=== PATIENT | male | born 1945 | race Caucasian/White ===

== ENCOUNTER 2017-03-12 16:23 | Inpatient (IN) | payer MEDICARE, BC ==
--- NOTE | 2017-03-12 19:04 | EDM.PDOC ---
{null, <[place] - Last Filed: 03/12/17 19:13> ED HPI RENAL/ - General Chief Complaint: Fever Stated Complaint: DIZZY/HIGH BP Time Seen by Provider: 03/12/17 18:50 Source of Information: Reports: Patient History Limitations: Reports: No limitations - History of Present Illness INITIAL COMMENTS - FREE TEXT/NARRATIVE: This 71 yo male patient reports to the ED with a fever and blood in his urine. The patient reports he had a prostate biopsy yesterday at [address] Ortega in [place]. Dr. Ortega called and advised that the patient should be admitted to our hospital due to infection. Dr. Nixon advised to avoid cipro, but encouraged us to have IV Rocephin waiting for culture results. 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: Reports: Acetaminophen (at 1500) - Related Data Allergies/ADRs: Allergies Allergy/AdvReac Type Severity Reaction Status Date / Time No Known Allergies Allergy Verified 03/12/17 17:28 Home Meds: Home Meds Calcium Carbonate/Vitamin D3 [Calcium 600 + Vit D 400] 1 cap PO DAILY 05/10/14 [ History] Cholecalciferol (Vitamin D3) [Vitamin D] 1,000 unit PO DAILY 05/10/14 [History] Omeprazole [Omeprazole] 20 mg PO DAILY 05/10/14 [History] Potassium 1 - 2 tab PO DAILY PRN 05/10/14 [History] Metoprolol Tartrate [Metoprolol Tartrate] 12.5 mg PO BID 09/17/16 [History] Brimonidine Tartrate [Brimonidine Tartrate 0.2% Ophth Soln] 1 drop EYEBOTH BID 03/12/17 [History] Tamsulosin [Flomax] 0.4 mg PO DAILY 03/12/17 [History] Past Medical History HEENT History: Reports: Cataract, Impaired vision, Other (see below) Other HEENT History: WEARS CORRECTIVE LENS Cardiovascular History: Reports: Arrhythmia, High cholesterol Respiratory History: Reports: None Gastrointestinal History: Reports: GERD, Other (see below) Other Gastrointestinal History: LIZARRAGA ESOPHAGUS Genitourinary History: Reports: BPH, Other (see below) Other Genitourinary History: ELEVATED PSA; NEPHROLITHIASIS; ATYPICAL SMALL ACINAR PROLIFERATION OF PROSTRATE; INCOMPLETE EMPTYING BLADDER Musculoskeletal History: Reports: Fracture, Other (see below) Other Musculoskeletal History: BUNION; HX OF FRACTURE OF LEFT FEMUR Neurological History: Reports: Concussion, Migraines, Other (see below) Other Neuro History: RESTLESS LEG SYNDROME & CRAMPING Psychiatric History: Reports: None Endocrine/Metabolic History: Reports: Osteopenia Hematologic History: Reports: Anemia, Other (see below) Other Hematologic History: NO ANEMIA AN ADULT, WAS DX AND RESOLVED A CHILD Immunologic History: Reports: None Oncologic (Cancer) History: Reports: Other (see below) Other Oncologic History: BASAL CELL CARCINOMA (NECK) Dermatologic History: Reports: Other (see below) Other Dermatologic History: ACTINIC KERATOSIS - Infectious Disease History Infectious Disease History: Reports: Chicken pox, Mumps - Past Surgical History Head Surgeries/Procedures: Reports: None HEENT Surgical History: Reports: Adenoidectomy, Tonsillectomy Cardiovascular Surgical History: Reports: None Respiratory Surgical History: Reports: None GI Surgical History: Reports: Colonoscopy, EGD, Hernia, inguinal Male Surgical History: Reports: Prostate Biopsy Endocrine Surgical History: Reports: None Neurological Surgical History: Reports: None Musculoskeletal Surgical History: Reports: ORIF, Other (see below) Other Musculoskeletal Surgeries/Procedures:: LEFT FEMUR SKYE PLACED Oncologic Surgical History: Reports: None Dermatological Surgical History: Reports: None Social & Family History - Family History HEENT: Reports: Cataract, Impaired vision Cardiac: Reports: Arrhythmia, Hypertension Respiratory: Reports: None GI: Reports: Other (see below) Other GI Family History: STOMACH CA : Reports: None OBGYN: Reports: Other (see below) Other OBGYN Family History: INFERTILITY Musculoskeletal: Reports: None Neurological: Reports: None Psychiatric: Reports: None Endocrine/Metabolic: Reports: None Hematologic: Reports: None Immunologic: Reports: None Dermatologic: Reports: None Oncologic: Reports: Other (see below) Other Oncologic Family History: STOMACH-FATHER - Tobacco Use Smoking Status *Q: Never Smoker Used Tobacco, but Quit: No Second Hand Smoke Exposure: No - Caffeine Use Caffeine Use: Reports: Coffee Other Caffeine Use: AVERAGES 2-3 CUPS DAILY - Alcohol Use Days Per Week of Alcohol Use: 0 - Recreational Drug Use Recreational Drug Use: No Drug Use in Last 12 Months: No ED ROS GENERAL - Review of Systems Review Of Systems: ROS reveals no pertinent complaints other than HPI. ED EXAM, RENAL/ - Physical Exam Exam: See Below Exam Limited By: No limitations General Appearance: alert, WD/WN, moderate distress, thin Eye Exam: bilateral eye: EOMI, normal inspection, PERRL Ears: normal external exam, normal canal, hearing grossly normal, normal TMs Nose: normal inspection, normal mucosa, no blood Throat/Mouth: Normal inspection, Normal lips, Normal teeth, Normal gums, Normal oropharynx, Normal voice, No airway compromise Head: atraumatic, normocephalic Neck: normal inspection, supple, non-tender, full range of motion Respiratory/Chest: no respiratory distress, lungs clear, normal breath sounds, no accessory muscle use, chest non-tender Cardiovascular: normal peripheral pulses, regular rate, rhythm, no edema, no gallop, no JVD, no murmur, no rub GI/Abdominal: normal bowel sounds, soft, non tender, no organomegaly, no distention, no abnormal bruit, no mass (Male) Exam: Deferred Rectal (Males) Exam: Deferred Back Exam: normal inspection, full range of motion, NT Extremities: normal inspection, normal range of motion, non-tender, normal capillary refill, no pedal edema Neurological: alert, oriented, CN II-XII intact, normal cognition, normal gait, normal reflexes, no motor/sensory deficits Psychiatric: normal affect, normal mood Skin Exam: Warm, Dry, Intact, Normal color, No rash Lymphatic: no adenopathy Course - Vital Signs Last Recorded V/S: Last Vital Signs Temp 100.3 F 03/12/17 21:12 Pulse 100 03/12/17 21:12 Resp 18 03/12/17 21:12 BP 118/57 L 03/12/17 21:12 Pulse Ox 95 03/12/17 21:12 - Orders/Labs/Meds Orders: Active Orders 24 hr Category Date Time Status CULTURE BLOOD [BC] Stat Lab 03/12/17 18:38 Received CULTURE BLOOD [BC] Stat Lab 03/12/17 18:45 Received CULTURE URINE [RM] Stat Lab 03/12/17 18:35 Received Blood Culture x2 Reflex Set [OM.PC] Stat Oth 03/12/17 18:21 Ordered Medication Orders Hydrocodone Bitart/Acetaminophen (Wisdom 325-10 Mg) 1 tab PO Q4H PRN PRN Reason: Pain (moderate 4-6) Calcium Carbonate (Calcium Carbonate/Vitamin D 1250 Mg-200 Unit) 1 tab PO DAILY [facility] Cholecalciferol (Vitamin D3) 1,000 units PO DAILY [facility] Ceftriaxone Sodium 1 gm/ (Sodium Chloride) 50 mls @ 100 mls/hr IV Q24H [facility] Sodium Chloride (Normal Saline) 1,000 mls @ 100 mls/hr IV ASDIRECTED [facility] Last Admin: 03/12/17 21:35 Dose: 100 mls/hr Metoprolol Tartrate (Lopressor) 12.5 mg PO BID [facility] Morphine Sulfate (Morphine) 2 mg IVPUSH Q2H PRN PRN Reason: Pain (severe 7-10) Brimonidine Tartrate 0.2% Ophth Jennifer Pt Own 1 drop EYEBOTH BID [facility] Omeprazole (Omeprazole) 20 mg PO ACBREAKFAST [facility] Ondansetron HCl (Zofran Odt) 4 mg PO Q4H PRN PRN Reason: nausea, able to take PO Sodium Chloride (Saline Flush) 10 ml FLUSH ASDIRECTED PRN PRN Reason: Keep Vein Open Tamsulosin HCl (Flomax) 0.4 mg PO DAILY [facility] Zolpidem Tartrate (Ambien) 5 mg PO BEDTIME PRN PRN Reason: Sleep Labs: Laboratory Tests 03/12/17 03/12/17 03/12/17 Range/Units 18:35 18:38 18:38 WBC 19.1 H (5.0-10.0) 10^3/uL RBC 4.72 (4.6-6.2) 10^6/uL Hgb 14.6 (14.0-18.0) g/dL Hct 43.5 (40.0-54.0) % MCV 92.2 (80-100) fL MCH 30.9 (27.0-34.0) pg MCHC 33.6 (33.0-35.0) g/dL Plt Count 200 (150-450) 10^3/uL Neut % (Auto) 89.0 H (42.2-75.2) % Lymph % (Auto) 4.1 L (20.5-50.1) % [place] % (Auto) 6.7 (2-8) % Eos % (Auto) 0.1 L (1.0-3.0) % Baso % (Auto) 0.1 (0.0-1.0) % Sodium 130 L (135-145) mmol/L Potassium 3.9 (3.6-5.0) mmol/L Chloride 97 L (101-111) mmol/L Carbon Dioxide 23.0 (21.0-31.0) mmol/L Anion Gap 13.9 BUN 20 H (7-18) mg/dL Creatinine 1.2 (0.6-1.3) mg/dL Est Cr Clr Drug Dosing 56.28 mL/min Estimated GFR (MDRD) 59 BUN/Creatinine Ratio 16.66 Glucose 103 (74-105) mg/dL Lactic Acid (0.5-2.2) mmol/L Calcium 9.4 (8.4-10.2) mg/dl Total Bilirubin 0.9 (0.2-1.0) mg/dL AST 30 (10-42) IU/L ALT 22 (10-60) IU/L Alkaline Phosphatase 56 (42-121) IU/L Total Protein 7.0 (6.7-8.2) g/dl Albumin 4.2 (3.2-5.5) g/dl Globulin 2.8 Albumin/Globulin Ratio 1.50 Urine Color Red (YELLOW) Urine Appearance Cloudy (CLEAR) Urine pH 6.5 (5.0-9.0) Ur Specific [place] 1.010 (1.005-1.030) Urine Protein >=300 H (NEGATIVE) Urine Glucose (UA) Negative (NEGATIVE) Urine Ketones Trace H (NEGATIVE) Urine Occult Blood Large H (NEGATIVE) Urine Nitrite Negative (NEGATIVE) Urine Bilirubin Small H (NEGATIVE) Urine Urobilinogen 0.2 (0.2-1.0) mg/dL Ur Leukocyte Esterase Negative (NEGATIVE) Urine RBC Packed H /HPF Urine WBC 5-10 H (0-5/HPF) /HPF Ur Epithelial Cells Not seen /HPF Urine Bacteria Occasional (0-FEW/HPF) /HPF 03/12/17 Range/Units 18:38 WBC (5.0-10.0) 10^3/uL RBC (4.6-6.2) 10^6/uL Hgb (14.0-18.0) g/dL Hct (40.0-54.0) % MCV (80-100) fL MCH (27.0-34.0) pg MCHC (33.0-35.0) g/dL Plt Count (150-450) 10^3/uL Neut % (Auto) (42.2-75.2) % Lymph % (Auto) (20.5-50.1) % [place] % (Auto) (2-8) % Eos % (Auto) (1.0-3.0) % Baso % (Auto) (0.0-1.0) % Sodium (135-145) mmol/L Potassium (3.6-5.0) mmol/L Chloride (101-111) mmol/L Carbon Dioxide (21.0-31.0) mmol/L Anion Gap BUN (7-18) mg/dL Creatinine (0.6-1.3) mg/dL Est Cr Clr Drug Dosing mL/min Estimated GFR (MDRD) BUN/Creatinine Ratio Glucose (74-105) mg/dL Lactic Acid 1.2 (0.5-2.2) mmol/L Calcium (8.4-10.2) mg/dl Total Bilirubin (0.2-1.0) mg/dL AST (10-42) IU/L ALT (10-60) IU/L Alkaline Phosphatase (42-121) IU/L Total Protein (6.7-8.2) g/dl Albumin (3.2-5.5) g/dl Globulin Albumin/Globulin Ratio Urine Color (YELLOW) Urine Appearance (CLEAR) Urine pH (5.0-9.0) Ur Specific [place] (1.005-1.030) Urine Protein (NEGATIVE) Urine Glucose (UA) (NEGATIVE) Urine Ketones (NEGATIVE) Urine Occult Blood (NEGATIVE) Urine Nitrite (NEGATIVE) Urine Bilirubin (NEGATIVE) Urine Urobilinogen (0.2-1.0) mg/dL Ur Leukocyte Esterase (NEGATIVE) Urine RBC /HPF Urine WBC (0-5/HPF) /HPF Ur Epithelial Cells /HPF Urine Bacteria (0-FEW/HPF) /HPF Meds: Medications Generic Name Dose Route Start Last Admin Trade Name Freq PRN Reason Stop Dose Admin Hydrocodone Bitart/Acetaminophen 1 tab 03/12/17 21:08 Wisdom 325-10 Mg PO Q4H PRN Pain (moderate 4-6) Calcium Carbonate 1 tab 03/13/17 09:00 Calcium Carbonate/Vitamin D 1250 Mg-200 Unit PO DAILY [facility] Cholecalciferol 1,000 units 03/13/17 09:00 Vitamin D3 PO DAILY [facility] Ceftriaxone Sodium 1 gm/ 50 mls @ 100 mls/hr 03/13/17 20:00 Sodium Chloride IV Q24H MADDIE Sodium Chloride 1,000 mls @ 100 mls/hr 03/12/17 21:15 03/12/17 21:35 Normal Saline IV 100 mls/hr ASDIRECTED MADDIE Administration Metoprolol Tartrate 12.5 mg 03/13/17 09:00 Lopressor PO BID [facility] Morphine Sulfate 2 mg 03/12/17 21:08 Morphine IVPUSH Q2H PRN Pain (severe 7-10) Brimonidine Tartrate 1 drop 03/13/17 09:00 0.2% Ophth Jennifer Pt EYEBOTH Own BID [facility] Omeprazole 20 mg 03/13/17 06:00 Omeprazole PO ACBREAKFAST [facility] Ondansetron HCl 4 mg 03/12/17 21:08 Zofran Odt PO Q4H PRN nausea, able to take PO Sodium Chloride 10 ml 03/12/17 21:46 Saline Flush FLUSH ASDIRECTED PRN Keep Vein Open Tamsulosin HCl 0.4 mg 03/13/17 09:00 Flomax PO DAILY [facility] Zolpidem Tartrate 5 mg 03/12/17 21:08 Ambien PO BEDTIME PRN Sleep Discontinued Medications Generic Name Dose Route Start Last Admin Trade Name Freq PRN Reason Stop Dose Admin Acetaminophen 650 mg 03/12/17 19:53 03/12/17 20:15 Tylenol PO 03/12/17 19:54 650 mg NOW ONE Administration Ceftriaxone Sodium 1 gm/ 50 mls @ 100 mls/hr 03/12/17 19:07 03/12/17 19:42 Sodium Chloride IV 03/12/17 19:36 100 mls/hr ONETIME ONE Administration Departure - Departure Disposition: Admitted As Inpatient 64 Clinical Impression: History of prostate biopsy, Hematuria Leukocytosis Qualifiers: Leukocytosis type: bandemia Qualified Code(s): D72.825 - Bandemia Fever Qualifiers: Fever type: post-procedural Qualified Code(s): R50.82 - Postprocedural fever <Ashlee Ackerman - Last Filed: 03/13/17 02:17> Course - Re-Assessments/Exams Free Text/Narrative Re-Assessment/Exam: TC consult Dr. Cohen regarding patient status. Reviewed prior shift TC consult with patient's urologist recommendation for IV rocephin. Patient admitted observation. Departure - Departure Time of Disposition: 20:10 Condition: undetermined }
[2017-03-12] MEDS ORDERED: cefTRIAXone 1 GM in Sodium Chloride 0.9% 50 ML IV ONE (19:07)
[2017-03-12] MEDS ORDERED: Acetaminophen 325 MG Tab PO ONE (19:53)
[2017-03-12] MEDS ORDERED: Morphine 2 MG/ML Syringe IVPUSH PRN (21:08)
[2017-03-12] MEDS ORDERED: Zolpidem 5 MG Tab PO PRN (21:08)
[2017-03-12] MEDS ORDERED: Acetaminophen/HYDROcodone 325-10 MG Tab PO PRN (21:08)
[2017-03-12] MEDS ORDERED: Ondansetron 4 MG Tab.DIS PO PRN (21:08)
[2017-03-12] MEDS: Sodium Chloride 0.9% 1,000 ML IV SCH (21:35)
[2017-03-12] MEDS ORDERED: Sodium Chloride 0.9% 10 ML Syringe FLUSH PRN (21:46)
--- NOTE | 2017-03-13 01:30 | HP ---
{null, CHIEF COMPLAINT: Blood in the urine with fevers. HISTORY OF PRESENTING ILLNESS: Mr. Nicholas Wilson is a 71-year-old male with medical history significant for hypertension; hyperlipidemia; atrial fibrillation, not on any active anticoagulation at this time; gastroesophageal reflux disease; basal cell carcinoma in the past; Perry's esophagus, recently underwent prostate biopsy that was yesterday at [facility] in [place]. He had transrectal ultrasound of the prostate and prostate biopsy using the ultrasound guidance for needle placement under local anesthesia. Postprocedure, the patient was hemodynamically stable, but later this afternoon, the patient started having fevers. He had a temperature of 103 at home, took some Tylenol, but did not help. He continued to have fevers and chills, so came to the emergency room. While in the emergency room, the patient was noted to have fever again and Urology was consulted, who has advised the patient to be admitted to the hospital for IV antibiotic therapy. At this time, the patient denies any complaints of abdominal pain. He complains of some burning pain when he urinates. He is seeing some blood in the urine, but no clots in the urine. He denies any lower abdominal pain. He denies any chest pains. No shortness of breath. No nausea. No vomiting. No diarrhea. No cough with phlegm for the last few days. The patient denied any history of chest pains on exertion. No history of dyspnea on exertion. No history of orthopnea or paroxysmal nocturnal dyspnea. The patient denied any history of hematemesis, hematochezia, or melanotic stools. Normal bowel and bladder habits, otherwise. REVIEW OF SYSTEMS: A complete review of system including cardiovascular system, respiratory system, gastrointestinal system, genitourinary system, hematology/oncology, neurology, allergy, immunology, endocrinology, constitutional were all evaluated and were negative except for the above-said notes. PAST MEDICAL HISTORY: Significant for hypertension, hyperlipidemia, paroxysmal atrial fibrillation, gastroesophageal reflux disease, restless legs syndrome, urolithiasis, history of basal cell carcinoma, Perry's esophagus, actinic keratosis. PAST SURGICAL HISTORY: Significant for biopsy of the prostate back in June of 2015, and also yesterday inguinal hernia repair. FAMILY HISTORY: Significant for breast cancer in his mother and thyroid disease, history of stomach cancer in his father, and prostate cancer in 1 of his cousins. ALLERGIES: No known drug allergies. SOCIAL HISTORY: The patient denied any history of smoking tobacco. No history of alcohol intake. HOME MEDICATIONS: Include: 1. Flomax 0.4 mg daily. 2. Potassium 1 to 2 tablet daily as needed. 3. Omeprazole 20 mg daily. 4. Metoprolol 12.5 mg twice a day. 5. Vitamin D3, 1000 units daily. 6. Calcium carbonate with vitamin D 1 caplet daily. 7. Brimonidine eye drop twice a day. PHYSICAL EXAMINATION: Vital Signs: Temperature of 100.6, pulse of 97, blood pressure of 153/53, respiratory rate of 20, saturating at 94% on room air. General Appearance: The patient is well oriented to time, place, and person. Follows commands spontaneously. Cardiovascular System: S1, S2 heard with normal intensity. No gallops. Respiratory System: Clear to auscultation bilaterally. No wheeze. No crepitations. Abdomen: Soft. Bowel sounds positive. Nontender. No rigidity. Extremities: Mild edema noted in bilateral lower extremities. Neurology: No gross focal neurological deficits. Skin: No acute rash noted. LABORATORY DATA: WBC 19.1, hemoglobin 14.6, hematocrit 43.5, platelet count 200. Sodium 130, potassium 3.9, chloride 97, bicarb 23, BUN 20, creatinine 1.2, glucose 103, lactic acid 1.2, calcium 9.4, total bilirubin 0.9. AST 30, ALT 22, alkaline phosphatase 56. Urinalysis; large for occult blood, negative for nitrites, negative for leukocytes, rbc packed, 5 to 10 wbc's. ASSESSMENT: 1. Post-prostate biopsy complication with hematuria. 2. Fever. 3. Systemic inflammatory response syndrome with possible sepsis with temperature of 100.6 and leukocytosis. 4. Paroxysmal atrial fibrillation. 5. Hypertension. 6. Hyponatremia. PLAN: 1. Fever. The patient is complaining of having fevers up to 103. He is noted to have leukocytosis. He is noted to have tachypnea with respiratory rate of 20, suggestive of possible sepsis, possible systemic inflammatory response syndrome. We will start him on IV antibiotic with ceftriaxone. Obtain blood cultures and urine cultures. His initial lactic acid is within normal limits. We will recheck the lactic acid in the next 6 to 8 hours and we will closely follow the patient, titrate the antibiotics once we have the culture reports available. 2. Gross hematuria. This is as a complication of the prostate biopsy. There is no outlet obstruction at this time. We will closely monitor, keep him hydrated with IV fluids, avoid any heparin products or any aspirin or any nonsteroid or anti-inflammatory agents secondary to the bleed, closely follow. 3. Paroxysmal atrial fibrillation. The patient gives history of paroxysmal AFib, but review of the chart did not show any evidence of AFib in the past. In any case, we will closely follow the patient. His heart rate seems to be well controlled. Continue with metoprolol 12.5 mg twice a day. We will hold the aspirin for now secondary to the acute bleed. The patient not on active anticoagulation, never took any Coumadin in the past. 4. Hypertension. The patient's blood pressure seems to be in acceptable range, slightly elevated at this time, could be resulting from stress. Continue with metoprolol. Avoid any hypotensive episodes. 5. Hyponatremia. This could be resulting from pain. We will have him on IV normal saline. Recheck a basic metabolic panel in the a.m. 6. DVT prophylaxis. Avoid any heparin secondary to the acute bleed. Discussed with Dr. Rosado, ER physician, regarding the plan of care. Discussed with family members at bedside. Reviewed the labs and medications. Reviewed the old charts. [facility] /[id number] }
[2017-03-13] MEDS: Acetaminophen 325 MG Tab PO PRN ×3 (04:17→15:56)
[2017-03-13] MEDS: Omeprazole 20 MG Cap.CR PO SCH (06:29)
[2017-03-13] MEDS: Sodium Chloride 0.9% 1,000 ML IV SCH ×2 (08:04→18:41)
[2017-03-13] MEDS ORDERED: BRIMONIDINE TARTRATE 0.15% EYEBOTH SCH (09:00)
[2017-03-13] MEDS: Tamsulosin 0.4 MG Cap.ER PO SCH (09:48)
[2017-03-13] MEDS: Cholecalciferol (Vitamin D3) 400 Unit Tab PO SCH (09:48)
[2017-03-13] MEDS: Calcium Carbonate/Vitamin D3 1250 MG-200 Unit Tab PO SCH (09:48)
[2017-03-13] MEDS: Metoprolol Tartrate 25 MG Tab PO SCH ×2 (09:49→20:41)
--- NOTE | 2017-03-13 11:48 | PN ---
{null, DATE: 03/13/2017 HISTORY OF PRESENT ILLNESS: Mr. Nicholas Wilson is a 71-year-old male with a medical history significant for hypertension, hyperlipidemia, atrial fibrillation, not on any active anticoagulation at this time, gastroesophageal reflux disease, recently underwent a prostate biopsy for possible prostate cancer, this was complicated with hematuria and admitted to the hospital with sepsis. For the past 24 hours, the patient was continued on IV antibiotics and IV fluids. His blood culture is positive for Gram-negative iron, 2/2 blood cultures, consistent with sepsis. The patient denies any chest pain. No shortness of breath. No abdominal pain. No nausea. No vomiting. No diarrhea. Complains of mild weakness. REVIEW OF SYSTEMS: Cardiovascular, respiratory, gastrointestinal, neurology, constitutional were all evaluated. PHYSICAL EXAMINATION: Vital Signs: Temperature of 102.1, blood pressure 124/55, respiratory rate of 20, saturating at 95% on room air. Pulse of 88. General appearance: The patient is well oriented to time, place, and person. Follows commands spontaneously. Cardiovascular system: S1, S2 heard with normal intensity. No gallops. Respiratory system: Clear to auscultation bilaterally. No wheeze. No crepitations. Abdomen: Soft. Bowel sounds positive. Nontender. No rigidity. No guarding. No rebound tenderness. Extremities: No edema in bilateral lower extremities. Neurology: No gross focal neurological deficits. Psychiatric: Normal mood. Skin: No acute lesions. MEDICATIONS: Reviewed. 1. Tylenol 650 every 4 hours as needed for fever and pain. 2. Percocet 5/325 mg every 4 hours as needed for pain. 3. Vitamin D3 at 1000 mg daily. 4. Metoprolol 12.5 mg twice a day. 5. Morphine 2 mg IV every 2 hours as needed for pain. 6. Omeprazole 20 mg daily. 7. Zofran 4 mg every 4 hours as needed for nausea and vomiting. 8. Ambien 5 mg at bedtime. LABORATORY DATA: WBC 16.7, improved from 19.1; hemoglobin 13.1, hematocrit 39.1, platelet count 195. Sodium 135, potassium 4, chloride 105, bicarb 23, BUN 19, creatinine 1.2. Glucose 122. Urinalysis negative for leukocytes, negative for nitrates, 5-10 wbc's, occasional bacteria. MICROBIOLOGY: Blood cultures positive for Gram-negative rods, 2/2 blood cultures. ASSESSMENT: 1. Sepsis with positive blood cultures. 2. Prostatitis, is a complication of prostate biopsy. 3. Hematuria, is a complication of prostate biopsy. 4. Paroxysmal atrial fibrillation. 5. Hypertension. 6. Hyperlipidemia. 7. Acute hyponatremia. PLAN: 1. Sepsis. The patient was admitted with fevers and chills and was noted to be in sepsis. The patient was started on IV antibiotics, ceftriaxone. His blood cultures are positive for Gram-negative iron, await for identification and susceptibility on the cultures, and titrate the antibiotics if needed. We will closely follow. The patient continues to have fevers while in the hospital. 2. Hematuria. The patient continues to have hematuria, but no clots noted. This is a complication of prostate biopsy. We will closely follow the patient. He is noted to have prostatitis. 3. Paroxysmal atrial fibrillation. Heart rate seems to be well controlled. He is on low-dose metoprolol, continue the same. Not on any active anticoagulation. Avoid any aspirin products secondary to the active bleed. 4. Gastroesophageal reflux disease. The patient is currently on omeprazole, continue the same. 5. Hyponatremia, resolved. The patient was noted to have low sodium at the time of admission. This is resolved at this time with normal saline. We will continue the IV fluids for better urinary output. 6. DVT prophylaxis. Avoid any heparin products secondary to the ongoing hematuria, gross. 7. The patient will need long-term antibiotics given his sepsis. We will closely follow the patient. The patient might need PICC line placement. We will repeat a blood culture in a.m. to see if his sepsis is getting cleared. [facility] /[id number] }
[2017-03-13] MEDS ORDERED: Ibuprofen 400 MG Tab PO ONE (17:34)
[2017-03-13] MEDS ORDERED: Piperacillin/Tazobactam 3.375 GM in Sodium Chloride 0.9% 100 ML IV SCH (17:45)
[2017-03-13] MEDS: cefTRIAXone 1 GM in Sodium Chloride 0.9% 50 ML IV SCH (20:11)
[2017-03-13] MEDS: BRIMONIDINE TARTRATE 0.15% EYEBOTH SCH (20:43)
[2017-03-13] MEDS: Piperacillin/Tazobactam 4.5 GM in Sodium Chloride 0.9% 50 ML IV SCH (23:43)
[2017-03-14] MEDS: Piperacillin/Tazobactam 4.5 GM in Sodium Chloride 0.9% 50 ML IV SCH ×2 (05:35→13:55)
[2017-03-14] MEDS: Omeprazole 20 MG Cap.CR PO SCH (05:36)
[2017-03-14] MEDS: Sodium Chloride 0.9% 1,000 ML IV SCH ×2 (06:49→17:03)
[2017-03-14] MEDS: Cholecalciferol (Vitamin D3) 400 Unit Tab PO SCH (09:12)
[2017-03-14] MEDS: Metoprolol Tartrate 25 MG Tab PO SCH ×2 (09:12→21:14)
[2017-03-14] MEDS: Calcium Carbonate/Vitamin D3 1250 MG-200 Unit Tab PO SCH (09:12)
[2017-03-14] MEDS: Tamsulosin 0.4 MG Cap.ER PO SCH (09:12)
[2017-03-14] MEDS: BRIMONIDINE TARTRATE 0.15% EYEBOTH SCH ×2 (09:14→20:42)
[2017-03-14] MEDS: Piperacillin/Tazobactam 4.5 GM in Sodium Chloride 0.9% 100 ML IV SCH ×2 (13:52→18:27)
[2017-03-14] MEDS: Acetaminophen 325 MG Tab PO PRN (18:29)
[2017-03-14] MEDS ORDERED: Barium Sulfate w/v 1.3% Oral Susp 450 ML Bottle PO ONE (20:17)
[2017-03-14] MEDS: cefTRIAXone 1 GM in Sodium Chloride 0.9% 50 ML IV SCH (20:22)
[2017-03-15] MEDS: Piperacillin/Tazobactam 4.5 GM in Sodium Chloride 0.9% 100 ML IV SCH ×2 (00:08→06:14)
[2017-03-15] MEDS: Sodium Chloride 0.9% 1,000 ML IV SCH (06:11)
[2017-03-15] MEDS: Omeprazole 20 MG Cap.CR PO SCH (06:17)
[2017-03-15] MEDS: Meropenem 1 GM in Sodium Chloride 0.9% 100 ML IV SCH ×2 (08:17→16:03)
--- NOTE | 2017-03-15 08:43 | PN ---
{null, DATE: 03/14/2017 HISTORY OF PRESENT ILLNESS: Mr. Peterson is a 71-year-old gentleman who underwent multiple transrectal prostate biopsies several days ago. Within several hours following the procedure, he developed rigors, chills, and 103 degree temperature. He took Tylenol which did not help; the fever and chills continued. He came to emergency room and was admitted. The admitting physician did contact Urology to review the findings. On admission to the emergency department, he had a temperature of 100.6 degrees , blood pressure was 153/53, pulse 97, respiratory rate 20, oxygen saturation 94% on room air. Lab work showed a white count of 19,000 with a left shift. Sodium was 130, remainder of the electrolytes were unremarkable. BUN and creatinine were 20 and 1.2 with a GFR of 59. LFTs were unremarkable. Urine showed a cloudy red urine with a specific gravity of 1.010 and had a large amount of occult blood, and negative leukocyte esterase. Microscopic exam showed packed rbc's and 5 to 10 wbc's per high-power field with occasional bacteria. Blood cultures drawn on the day of admission have all (4/4 bottles) become positive for the presence of gram-negative rods. Two sets of followup blood cultures were drawn today and results are pending. Repeat lab work this morning shows that the white count has come down to 6.7. Hemoglobin and hematocrit are stable at 13 and 39. Electrolytes are normal. BUN and creatinine are stable at 15 and 1.3 with a GFR of 54. Blood sugars are controlled. Lactic acid since admission has remained normal as well. Review of his clinical data shows that he is taking adequate fluids. He is voiding and does seem to be somewhat ahead on his fluids. His appetite has been poor but is improving. His medications are reviewed. He currently is on IV ceftriaxone. Zosyn was later added to broaden the coverage, as he continued to be febrile and had positive blood cultures. On exam today, his is present in his room. He is lying in bed. His dinner tray is there, but he has not touched it. He is laying bundled under multiple blankets and has a cold cloth on his head. He has continued to spike fevers. His T-max in the last 24 hours was 101.7 last evening. This afternoon he did spike again to 100.7. He denies any pain, but does say that he continues to feel unwell with shaking last night; he experienced rigors at the time of the temperature spike. No blood cultures were drawn at that time. He denies any back or flank pain. He still continues to have some dysuria with voiding. He does continue to have some post-procedure hematuria. PHYSICAL EXAMINATION: General: On exam, he is lying in bed. He appears unwell. He is bundled under blankets, but he was alert, oriented, and did participate in the visit. Vital Signs: Blood pressure 98/46, later in the day this improved to 117/50, pulse 62 and regular, respiratory rate 20, oxygen saturation 94% on room air. Temperature 98.6, later in the day this went again to 100.7. HEENT: Unremarkable. Neck was supple. Mouth showed moist mucous membranes. Sclerae were nonicteric. There was no adenopathy. Chest: Showed clear but diminished bilateral breath sounds. Heart: Showed regular rate and rhythm. Abdomen: Soft, benign, nontender, no guarding, no rebound. No masses were palpated. Extremities: Legs showed the calves to be soft and nontender. There are palpable peripheral pulses. Skin: Warm and dry without any rashes. ASSESSMENT AND PLAN: Mrs. Peterson was also present for the visit and we discussed his progress since admission and the significance of his findings. Of concern is the fact that he continues to spike temperatures while on the 2 antibiotics. We are going to order a CT scan of the abdomen and pelvis tomorrow with IV and oral contrast to eliminate possibility of any collection or abscess formation. We will contact Urology if there are any findings of concern. Mr. Peterson also has a iron in one of his femurs and Mrs. Peterson spoke with their orthopedist. The orthopedist stated that because this was not a joint replacement, he was not concerned about the bacteremia with the presence of the iron. Mr. Peterson recently had some type of stents placed in his eyes at the time of cataract removal and we will get in touch with Dr. Landers and discuss this with him. No changes were made in his medications today. He continues on the two IV antibiotics. A second set of blood cultures has been drawn and results are pending. White count is now down to normal, but he continues to spike intermittent fevers. Overall, he remains hemodynamically stable. [facility] /[id number] NORAHD }
[2017-03-15] MEDS ORDERED: Iopamidol 612 MG/ML 75 ML Bottle IVPUSH ONE (09:00)
[2017-03-15] MEDS ORDERED: Barium Sulfate w/v 1.3% Oral Susp 450 ML Bottle PO ONE (09:00)
--- NOTE | 2017-03-15 09:59 | CT ---
{null, CLINICAL HISTORY: 71-year-old 160 pound hypertensive male with fever and septicemia (Escherichia col i) post prostate biopsy (15 core samples revealed "cancer") 11 March 2017. Abscess? SCAN TECHNIQUE: Volume acquisition of data from the abdomen and pelvis obtained after oral ingestion 2 bottles Redicat barium and during/after the intravenous infusion 75 cc nonionic Isovue contrast ( 2.5 cc/sec via injector) while the patient was lying supine on the Siemens multislice CT scanner [place], [place]. All data archived in the PACS system for storage, refo rmatting and study. INTERPRETATION: 1. Orthopedic "nail" left hip. 2. Chronic disc disease and hypertrophic arthritic changes dorsal lumbar spine. 3. Inhomogeneously dense midline prostate gland with irregular margins and central calcifications bu t no abnormal fluid collections or abscess appreciated. (Symmetric normal seminal vesicles) 4. Diverticula scattered sigmoid colon without associated signs of inflammation. 5. No pelvic, mesenteric or retroperitoneal lymphadenopathy. Calcifications ectatic aorta. 6. Normal reniform size, axis and configuration. No sign of renal cortical mass lesion (solitary 2.5 mm diameter calyceal calcification midpole right kidney) or obstructive uropathy. Median lobe prost ate mass base of the urinary bladder. 7. No abdominal mass lesion, inflammatory "dirty" peritoneal fat, signs of mechanical bowel obstruct ion, ascites or free intraperitoneal air. 8. Gallbladder, liver, stomach, spleen, pancreas and adrenal glands anatomically correct. 9. Cardiomegaly. No sign of pericardial effusion. NOTE: Dependent bibasilar pleural effusions and underlying posterior segment left lower lobe atelect asis or infiltrate. CONCLUSION: Abnormal prostate gland. Sigmoid diverticulosis. Cardiomegaly with pleural effusions and....left lower lobe atelectasis or infiltrate. }
--- NOTE | 2017-03-15 11:49 | CR ---
{null, Clinical history: 71-year-old male septicemia after recent prostate biopsy. Interpretation: Abnormal. Normal cardiac silhouette without cephalization of vascular flow or signs of alveolar edema but...sm all bibasilar dependent subpulmonic pleural effusions (left greater than right) and.... underlying r etrocardiac left lower lobe atelectasis or infiltrate. (Pulmonary emphysema or infarct? Serum D dimer?) No lung mass, hilar lymphadenopathy or other focal lobar consolidation. }
[2017-03-15] MEDS: Metoprolol Tartrate 25 MG Tab PO SCH (12:09)
[2017-03-15] MEDS: Tamsulosin 0.4 MG Cap.ER PO SCH (12:09)
[2017-03-15] MEDS: Calcium Carbonate/Vitamin D3 1250 MG-200 Unit Tab PO SCH (12:09)
[2017-03-15] MEDS: Cholecalciferol (Vitamin D3) 400 Unit Tab PO SCH (12:11)
[2017-03-15] MEDS: BRIMONIDINE TARTRATE 0.15% EYEBOTH SCH (12:14)
[2017-03-15 14:35] VITALS: BP 111/56
[2017-03-15] MEDS ORDERED: Furosemide 20 MG/2 ML VIAL IVPUSH ONE (16:02)
--- NOTE | 2017-04-10 04:21 | DISCH ---
{null, DISCHARGE SUMMARY ACUTE CARE DISCHARGE DIAGNOSES: 1. Gram-negative sepsis with positive blood cultures for Escherichia coli. 2. Status post transrectal prostate biopsy on 03/11/2017, with Gram-negative sepsis as complication. 3. Biopsy-proven prostate cancer, 03/11/2017, stable. 4. Remainder of past medical history as documented in the admission history and physical of 03/13/2017. BRIEF HISTORY OF PRESENT ILLNESS: Mr. Peterson is a 71-year-old gentleman, who underwent multiple transrectal prostate biopsies on 03/11/2017. Within several hours following the procedure, he had developed rigors, chills, and temperature to 103 degrees. He took Tylenol at home, which did not help. The fevers and chills continued. He came to the emergency room for evaluation and was admitted for further management. The admitting physician did speak to Mr. Peterson's urologist, Dr. Dylan Ortega, informing him of the findings and the admission. PERTINENT LABORATORY DATA AND X-RAYS: CBC on day of admission showed a white count of 19,000, with a left shift. White count gradually improved and was 6.7 at the time of discharge from acute to swing bed. Hemoglobin and hematocrit at discharge were 12.9 and 39.4. Platelets at the time of admission were normal at 200,000, and slightly reduced at 132,000, at time of discharge. Electrolytes were unremarkable. BUN and creatinine on admission were 20 and 1.2, with a GFR of 59, this diminished slightly to GFR of 54 at time of discharge. Lactic acid was normal at 1.2. LFTs were unremarkable. A urinalysis on day of admission showed a cloudy, red-colored urine with a specific gravity of 1.010. Negative for leukocyte esterase and nitrites. Microscopic exam showed packed rbc's with 5 to 10 wbc's, with only occasional bacteria. Urine culture showed no growth after 2 days. Two sets of blood cultures were drawn at the time of admission, and 4/4 bottles were positive for E. coli. Two subsequent sets of blood cultures were drawn 48 hours after initiating IV antibiotic therapy and showed no growth after [address] scan of the abdomen and pelvis was obtained during the admission to evaluate for the possibility of an abscess or collection. There was no evidence for any abdominal mass lesion, "dirty" peritoneal fat, or other intra-abdominal pathology. Prostate was noted to be abnormal, but we do know that the prostate biopsies were positive for prostate cancer. He had diverticulosis, but no evidence for diverticulitis. A 2-view chest x-ray performed at time of admission showed a normal cardiac silhouette with no acute infiltrates and no pulmonary venous congestion, no adenopathy. There were small bibasilar pleural effusions, left greater than right. A transthoracic echocardiogram was obtained because of the bacteremia. Results showed no evidence of a mass or vegetation. A transthoracic echo does not completely eliminate the possibility of endocarditis. Ejection fraction was estimated 55% to 60%. The right ventricle was moderately dilated, the right ventricular systolic function is borderline reduced. There is [id number] tricuspid and mitral valve regurgitation, no vegetation was seen on the valve. There was no pericardial effusion. HOSPITAL COURSE: Mr. Peterson had originally been started on IV Zosyn and ceftriaxone was also added. Results of the blood culture showed E. coli in 4/4 bottles. The organism was resistant to ampicillin and fluoroquinolones. Despite being on the two IV antibiotics, he continued to spike temperatures as high as 101.7, with chills and rigors. The Zosyn was discontinued and meropenem was added to the ceftriaxone. Once the VITOR of the cultures was available, the ceftriaxone was discontinued and he continued on meropenem 1 g IV every 8 hours. At that point, he clinically improved and he defervesced with maximum temperature of a 100 degrees throughout the day. He clinically looked and felt much better. He will be admitted to swing bed to continue IV antibiotic therapy. Once he was feeling better, he was up and ambulatory and did not require the services of Physical and Occupational Therapy. No heparin or enoxaparin was used for VTE prophylaxis because of the recent prostate biopsy and the mild hematuria, but as mentioned, he was up and ambulatory, was wearing SURINDER hose. Mr. Peterson does have a iron in one of his femurs, and Mr. Peterson spoke with his orthopedist. The orthopedist was not concerned about the bacteremia as this was not part of a joint replacement and it was less risk to the iron. Two sets of follow-up blood cultures remained without any growth. Mr. Peterson will be discharged today to swing bed to continue IV antibiotics. Today, on day of discharge, he is looking and feeling much better. He is up and ambulatory. Review of his clinical data shows that he is taking in adequate fluids. He is voiding and moving his bowels. There has been no gross hematuria. He is tolerating his diet and appetite is improving. Vital signs have been stable, and his T-max in the last 24 hours has been 99.6 degrees. Chest x-ray taken on day of discharge showed small bibasilar pleural effusions, and he was given a one dose of Lasix 20 mg IV. PHYSICAL EXAMINATION: General: He is looking much better. He is feeling better. He voices no new concerns or complaints. There has been no chest pain, no shortness of breath, no abdominal pain. No calf or leg pain. No further rigors or chills. Vital Signs: Blood pressure 114/58, pulse 59, respiratory rate 20, oxygen saturation 98% on room air, temperature 98.4. Weight 160 pounds 11.2 ounces. HEENT: Unremarkable. ENT was clear. Sclerae were nonicteric. Mouth showed moist mucous membranes. Chest: Showed clear bilateral breath sounds. Heart: Showed regular rate and rhythm. Abdomen: Soft, benign, nontender. No flank pain. No guarding or rebound. No suprapubic tenderness. Extremities: Showed no edema. There were palpable peripheral pulses and the calves were soft and nontender. Neurologic: He is intact. DISCHARGE MEDICATIONS: He will continue on his usual medications. 1. Tylenol 650 mg every 4 hours p.r.n. pain or fever. 2. Brimonidine 0.2% ophthalmic solution 1 drop both eyes b.i.d. 3. Calcium with vitamin D 1 tablet daily. 4. Vitamin D3, 1000 units daily. 5. Metoprolol tartrate 12.5 mg twice a day. 6. Omeprazole 20 mg daily. 7. Flomax 0.4 mg daily. 8. He will continue on meropenem 1 g IV every 8 hours. IMPRESSION: A 71-year-old gentleman, status post transrectal prostate biopsies on 03/11/2017. He subsequently developed Gram-negative bacteremia, with 4/4 blood cultures positive for Escherichia coli. He will now be discharged from acute care and [facility] to continue a 14-day course of IV antibiotics. PLAN: 1. Continue IV meropenem 1 g IV every 8 hours. Plann for a 14-day course. 2. Continue usual medications as above. 3. Follow up blood cultures have remained negative. Urine culture is also negative. 4. He is up and ambulatory and will not need referral to Physical and Occupational Therapy. 5. We will continue to hold heparin for VTE prophylaxis because of the recent prostate biopsy and hematuria. He is up, ambulatory, moving, and wearing SURINDER hose. 6. We have informed his urologist, Dr. Dylan Ortega of the admission and findings. Mr. Peterson will see Dr. Ortega by Telemedicine next week. At that time, the results of his biopsy and a recent MRI will be discussed with him and his . 7. Code status during this admission: Full code. DISCHARGE CONDITION: Condition at the time of discharge from acute care and admission to swing bed: Much improved and stable. [facility] /[id number] MTDD }
== END 2017-03-15 17:36 | disposition swing bed (61) | DRG 872 ==
LOC: DL.ED 16:23 → DL.MS 20:30 → UNDOADMOB 20:30 → DL.MS 21:08 → UNDOADMOB 21:08 → DL.MS 21:11 → OBSVTOIN 03-13 10:19 → INTOOBSV 03-13 10:19 → UNDODISIN 03-15 17:36
PROVIDERS: ADMIT Internal Medicine; ATTEND Internal Medicine
DX: A41.9 Sepsis, unspecified organism (principal); D72.825 Bandemia; E87.1 Hypo-osmolality and hyponatremia; E78.00 Pure hypercholesterolemia, unspecified; B96.20 Unspecified Escherichia coli [E. coli] as the cause of diseases classified elsewhere; N40.0 Benign prostatic hyperplasia without lower urinary tract symptoms; N41.9 Inflammatory disease of prostate, unspecified; M85.80 Other specified disorders of bone density and structure, unspecified site; R31.9 Hematuria, unspecified; Z98.890 Other specified postprocedural states; I10 Essential (primary) hypertension; E78.5 Hyperlipidemia, unspecified; I48.0 Paroxysmal atrial fibrillation; K21.9 Gastro-esophageal reflux disease without esophagitis; G25.81 Restless legs syndrome; Z79.899 Other long term (current) drug therapy; C61 Malignant neoplasm of prostate
CPT/HCPCS: 36415; 71020; 74177; 80048; 80053; 81001; 83605; 85025; 85027; 87040; 87077; 87086; 87186; 93306; 96361; 96365; 99284; A9270-GY; G0378; J0696; J1940; J2185; J2543; J7030; J7050; Q9967

== ENCOUNTER 2017-03-15 21:17 | Inpatient (IN) | payer MEDICARE, BC ==
[2017-03-15] MEDS ORDERED: Ondansetron 4 MG Tab.DIS PO PRN (21:21)
[2017-03-15] MEDS ORDERED: Zolpidem 5 MG Tab PO PRN (21:21)
[2017-03-15] MEDS ORDERED: Patient's Own Medication 1 Each EYEBOTH SCH (21:30)
[2017-03-15] MEDS ORDERED: Acetaminophen 325 MG Tab PO PRN (21:36)
[2017-03-15] MEDS: Metoprolol Tartrate 25 MG Tab PO SCH (22:21)
[2017-03-15] MEDS: Patient's Own Medication 1 Each EYEBOTH SCH (22:23)
[2017-03-15] MEDS: Sodium Chloride 0.9% 10 ML Syringe FLUSH PRN ×2 (22:25→23:28)
[2017-03-15] MEDS: Meropenem 1 GM in Sodium Chloride 0.9% 100 ML IV SCH (22:25)
[2017-03-16] MEDS: Sodium Chloride 0.9% 10 ML Syringe FLUSH PRN ×4 (05:31→23:40)
[2017-03-16] MEDS: Meropenem 1 GM in Sodium Chloride 0.9% 100 ML IV SCH ×3 (05:32→22:34)
[2017-03-16] MEDS: Omeprazole 20 MG Cap.CR PO SCH (05:36)
[2017-03-16] MEDS: Tamsulosin 0.4 MG Cap.ER PO SCH (09:32)
[2017-03-16] MEDS: Calcium Carbonate/Vitamin D3 1250 MG-200 Unit Tab PO SCH (09:33)
[2017-03-16] MEDS: Cholecalciferol (Vitamin D3) 400 Unit Tab PO SCH (09:33)
[2017-03-16] MEDS: Patient's Own Medication 1 Each EYEBOTH SCH ×2 (09:36→22:15)
[2017-03-16] MEDS: Metoprolol Tartrate 25 MG Tab PO SCH ×2 (09:37→22:14)
[2017-03-17] MEDS: Omeprazole 20 MG Cap.CR PO SCH (05:32)
[2017-03-17] MEDS: Meropenem 1 GM in Sodium Chloride 0.9% 100 ML IV SCH ×3 (05:33→21:57)
[2017-03-17] MEDS: Sodium Chloride 0.9% 10 ML Syringe FLUSH PRN ×4 (05:33→21:57)
[2017-03-17] MEDS: Cholecalciferol (Vitamin D3) 400 Unit Tab PO SCH (09:48)
[2017-03-17] MEDS: Tamsulosin 0.4 MG Cap.ER PO SCH (09:48)
[2017-03-17] MEDS: Calcium Carbonate/Vitamin D3 1250 MG-200 Unit Tab PO SCH (09:48)
[2017-03-17] MEDS: Metoprolol Tartrate 25 MG Tab PO SCH ×2 (09:49→22:05)
[2017-03-17] MEDS: Patient's Own Medication 1 Each EYEBOTH SCH ×2 (09:51→22:07)
[2017-03-18] MEDS: Sodium Chloride 0.9% 10 ML Syringe FLUSH PRN ×3 (05:29→13:38)
[2017-03-18] MEDS: Meropenem 1 GM in Sodium Chloride 0.9% 100 ML IV SCH ×3 (05:30→22:01)
[2017-03-18] MEDS: Omeprazole 20 MG Cap.CR PO SCH (05:30)
--- NOTE | 2017-03-18 08:14 | HP ---
REASON FOR ADMISSION TO SWING BED: A 71-year-old man with gram negative sepsis will be admitted to swing [facility] to continue and complete a 2-week course of IV antibiotics. HISTORY OF PRESENT ILLNESS: Mr. Peterson is a 71-year-old gentleman who underwent multiple transrectal prostate biopsies on March 11, 2017. Within several hours following the procedure, he developed rigors, chills and a 103 degree temperature. He took Tylenol, which did not help. Fevers and chills continued, and he came to the emergency room, was evaluated and then admitted. The admitting hospitalist did contact the urologist, Dr. Dylan Ortega, and informed him of the findings and the admission. LABORATORY STUDIES: Lab work at the time of admission showed white count of 19,000 with a left shift. BUN and creatinine were 20 and 1.2 with a GFR of 49. Urine showed a cloudy red urine with a specific gravity of 1.010. Microscopic exam showed packed red cells and 5-10 WBCs per high-power field with only an occasional bacteria. Two sets of blood cultures were drawn on the day of admission, and are 4/4 bottles are positive for the presence of gram-negative rods, which have now been identified as E. coli. The organism was resistant to ampicillin and fluoroquinolones. He had initially been started on IV ceftriaxone as well as IV Zosyn. Despite being on 2 antibiotics, he continued to spike temperatures to as high as 101.7 and the Zosyn was discontinued and meropenem was added to the ceftriaxone. Once the VITOR was available, the ceftriaxone was discontinued, and he will continue on meropenem 1 g IV every 8 hours. Clinically, he is finally much improved and T-max in the 24 hours prior to discharge to swing bed was 100.0 degrees throughout the day and today have remained no higher than 99.6. Clinically, he looks and feels much better. He will now be admitted to swing bed to continue the IV antibiotic therapy. It should also be noted that the biopsies taken on March 11 were positive for adenocarcinoma of the prostate. PAST MEDICAL HISTORY: Dyslipidemia, GERD, Perry's esophagus, elevated PSA, which has now been confirmed to be prostate cancer by multiple biopsy samples restless legs syndrome, basal cell carcinoma, actinic keratoses, hypertension, and paroxysmal atrial fibrillation. PAST SURGICAL HISTORY: Esophageal biopsy with diagnosis of Perry's esophagus in June 2015. March 11, 2017, transrectal biopsies of the prostate. SOCIAL HISTORY: He is . He has never smoked cigarettes. He only drinks occasional social alcohol. IMMUNIZATIONS: High-dose flu vaccine August 29, 2016. Pneumovax (PPV-23) November 21, 2012. Pneumococcal vaccine (PCV 13) August 29, 2016. Zoster November 14, 2012. CURRENT MEDICATIONS: Are reviewed. His usual medications will be continued. He will continue on meropenem 1 g IV every 8 hours for the next 14 days. ALLERGIES: No known allergies. REVIEW OF SYSTEMS: During his acute stay, he gradually improved. His appetite improved. He is tolerating his diet. He is voiding and moving his bowels. He is taking in adequate fluids and his IV fluids will be discontinued. He is now afebrile. Vital signs are stable. Blood pressure is in the normal range. Oxygen saturations were in the mid to high 90% on room air. He denies any sore throat. No vision or hearing changes. No swallowing difficulties. No chest pain or shortness of breath. No abdominal pain. No flank pain. No dysuria or gross hematuria. No calf or leg pain. He was not started on heparin for VTE prophylaxis because of the recent prostate biopsy. However, he is up and ambulatory and is wearing SURINDER hose. No recent falls or injuries. No rashes, no cough. PHYSICAL EXAMINATION: General: He is a pleasant gentleman. He is accompanied by his . He is much improved since admission. Today, he is sitting up in bed. Vital Signs: Blood pressure was 118/61, pulse 60 and regular, respiratory rate 20 and unlabored, oxygen saturation 98% on room air, temperature 99, weight 160 pounds 11 ounces, height 6 feet. HEENT: Unremarkable. ENT is clear. No adenopathy, no JVDs, or bruits. Chest: Clear bilateral breath sounds with improved bilateral air movement. Heart: Regular rate and rhythm. Abdomen: Soft, benign, and nontender. There was no flank pain. No guarding, no rebound. Extremities: No edema. Calves were soft and nontender. There were palpable peripheral pulses. Neurological: He is intact. Skin: Clear with no rashes. IMPRESSION: A 71-year-old gentleman who underwent recent multiple transrectal prostate biopsies, which confirmed diagnosis of prostate cancer. Following the procedure, he developed fever and chills and was found to have gram-negative bacteremia. Blood cultures have shown the presence of E. coli in 4/4 bottles. A followup set of blood cultures have remained negative. Urine culture is also negative. He will be admitted to swing bed to continue and complete a 14-day course of IV meropenem. PLAN: 1. Continue current medications. 2. We will continue IV meropenem for the gram-negative bacteremia. Plan is to complete a 14-day course. 3. He is up and ambulatory independently. We will not need to refer him to physical and occupational Therapy. 4. We are not using heparin for VTE prophylaxis because of the recent prostate biopsy. Mr. Peterson is also up and ambulatory, moving, and is wearing SURINDER hose. 5. We have informed his urologist, Dr. Dylan Ortega, of the admission and findings. Mr. Peterson is due to follow up this week by telemedicine here in [place] with Dr. Ortega to receive the reports of the biopsy and recent MRI. 6. Code status: Full code. CONDITION AT THE TIME OF DISCHARGE FROM ACUTE CARE AND ADMISSION TO SWING BED: Much improved and stable. [facility] /[id number] HALIMA
[2017-03-18] MEDS: Metoprolol Tartrate 25 MG Tab PO SCH ×2 (10:03→21:57)
[2017-03-18] MEDS: Calcium Carbonate/Vitamin D3 1250 MG-200 Unit Tab PO SCH (10:05)
[2017-03-18] MEDS: Patient's Own Medication 1 Each EYEBOTH SCH ×2 (10:05→22:01)
[2017-03-18] MEDS: Tamsulosin 0.4 MG Cap.ER PO SCH (10:09)
[2017-03-18] MEDS: Cholecalciferol (Vitamin D3) 400 Unit Tab PO SCH (10:10)
[2017-03-19] MEDS: Omeprazole 20 MG Cap.CR PO SCH (06:34)
[2017-03-19] MEDS: Meropenem 1 GM in Sodium Chloride 0.9% 100 ML IV SCH ×3 (06:34→21:31)
[2017-03-19] MEDS: Cholecalciferol (Vitamin D3) 400 Unit Tab PO SCH (08:35)
[2017-03-19] MEDS: Tamsulosin 0.4 MG Cap.ER PO SCH (08:35)
[2017-03-19] MEDS: Calcium Carbonate/Vitamin D3 1250 MG-200 Unit Tab PO SCH (08:35)
[2017-03-19] MEDS: Metoprolol Tartrate 25 MG Tab PO SCH ×2 (08:36→21:19)
[2017-03-19] MEDS: Patient's Own Medication 1 Each EYEBOTH SCH ×2 (08:37→21:17)
[2017-03-19] MEDS: Sodium Chloride 0.9% 10 ML Syringe FLUSH PRN ×4 (14:22→22:34)
[2017-03-20] MEDS: Sodium Chloride 0.9% 10 ML Syringe FLUSH PRN ×3 (05:08→22:02)
[2017-03-20] MEDS: Meropenem 1 GM in Sodium Chloride 0.9% 100 ML IV SCH ×3 (05:10→22:00)
[2017-03-20] MEDS: Omeprazole 20 MG Cap.CR PO SCH (05:13)
[2017-03-20] MEDS: Tamsulosin 0.4 MG Cap.ER PO SCH (08:19)
[2017-03-20] MEDS: Calcium Carbonate/Vitamin D3 1250 MG-200 Unit Tab PO SCH (08:19)
[2017-03-20] MEDS: Cholecalciferol (Vitamin D3) 400 Unit Tab PO SCH (08:19)
[2017-03-20] MEDS: Metoprolol Tartrate 25 MG Tab PO SCH ×3 (08:21→22:01)
[2017-03-20] MEDS: Patient's Own Medication 1 Each EYEBOTH SCH ×2 (08:31→22:10)
[2017-03-20 22:12] VITALS: BP 98/51
--- NOTE | 2017-04-10 04:18 | DISCH ---
FINAL DIAGNOSES: 1. Gram-negative bacteremia. 2. Prostate cancer, status post biopsy. BRIEF HISTORY AND PHYSICAL EXAMINATION: The patient is a 71-year-old man being admitted under swing bed to complete 2-week course of IV antibiotics. He was noted to have E. coli bacteremia. He recently underwent prostate biopsy for an elevated PSA and subsequently developed rigors and chills with a temperature of 103. The patient was noted to have elevated WBC count. Blood culture showed positive for gram-negative and identified as E coli, and the patient was advised to continue IV antibiotics, hence was admitted under swing bed. PAST MEDICAL HISTORY: Dyslipidemia, GERD, Perry's esophagus, elevated PSA, basal cell carcinoma, hypertension, and paroxysmal atrial fibrillation. DOCUMENTED PHYSICAL EXAMINATION: Vital Signs: On admission to swing bed documented physical examination showed a blood pressure of 118/61, respirations of 20 breaths per minute, heart rate of 60 beats per minute, temperature of 99, and oxygen saturation 98% on room air. The rest of the examination were noted to be unremarkable. LABORATORY DATA: No workup done under swing bed. HOSPITAL COURSE: The patient was admitted under swing bed. IV meropenem was continued. There have been no significant issues when he was under swing bed. He has been independently ambulatory, has no therapy needed. He has not been on heparin because of the recent biopsy. Vital signs on discharge; blood pressure 98/51, heart rate of 65 beats per minute, respirations 20 breaths per minute, oxygen saturation 97% on room air, and temperature 37.0. DISCHARGE INSTRUCTIONS: The patient is to follow up with his primary care provider within 1 week, take care of the IV site, continue with IV antibiotics outpatient, to come back to the emergency room if with emergent health concerns. [facility] /[id number] HALIMA
== END 2017-03-20 22:55 | disposition home or self-care (01) | DRG 872 ==
LOC: UNDOADMIN 21:17 → DL.MS 21:17
PROVIDERS: ADMIT Internal Medicine; ATTEND Internal Medicine
DX: A41.51 Sepsis due to Escherichia coli [E. coli] (principal); K21.9 Gastro-esophageal reflux disease without esophagitis; I10 Essential (primary) hypertension; C61 Malignant neoplasm of prostate; K22.70 Barrett's esophagus without dysplasia; Z85.828 Personal history of other malignant neoplasm of skin; Z86.79 Personal history of other diseases of the circulatory system; Z79.2 Long term (current) use of antibiotics
CPT/HCPCS: A9270-GY; J2185; J7050

== ENCOUNTER 2021-02-22 05:52 | Day surgery (SDC) | payer MEDICARE, BC ==
[2021-02-22] MEDS ORDERED: fentaNYL 100 MCG/2 ML SDV IV ONE ×3 (05:53→07:06)
[2021-02-22] MEDS ORDERED: Midazolam 1 MG/ML 2 ML SDV IV ONE ×7 (05:53→07:15)
[2021-02-22] MEDS ORDERED: Sodium Chloride 0.9% 10 ML Syringe FLUSH PRN (06:00)
[2021-02-22] MEDS ORDERED: fentaNYL 100 MCG/2 ML SDV ONE (06:19)
[2021-02-22] MEDS ORDERED: Midazolam 1 MG/ML 2 ML SDV ONE (06:19)
[2021-02-22] MEDS ORDERED: Dextrose 5%-0.45% NaCl 1,000 ML IV SCH (07:15)
[2021-02-22 10:30] VITALS: BP 106/59; PULSE 54
--- NOTE | 2021-02-22 16:04 | OR ---
DATE: 02/22/2021 PROCEDURE: Total colonoscopy. INSTRUMENT USED: [id number]-H190DL Olympus video colonoscope. PREMEDICATIONS: Fentanyl 100 mcg intravenous, Versed 4 mg intravenous. Nasal O2 cannula. The procedure was done under pulse oximetry, BP recording, and cardiac rn. INDICATION: The patient with rectal bleeding. Colonoscopy examination is done for detection of any polypoid lesions and removal, endoscopic hemostasis therapy if needed. DESCRIPTION OF PROCEDURE: Initial rectal exam was unremarkable. Rigid anoscopy showed small internal hemorrhoids with minimal bleeding around the area. The colonoscope was passed with ease. Numerous scattered diverticula were noted in the distal left colon along with deformity. The scope was passed with ease up to the ileocecal area. Photographs were taken of the normal-appearing cecum identified by landmarks of appendiceal orifice and double-bulged ileocecal folds. No bleeding was noted from any of the visualized areas at the commencement of the examination. The bowel preparation was found to be adequate. Cordell scale 2 in all regions, total score 6. No stricture, no vascular ectasia. No large isolated ulcerations seen. No evidence of diffuse inflammatory bowel disease in the form of friability, contact bleeding, or ulcerations. No polyp or tumor mass identified. Probing the proximal sides of folds and flexures using adequate distention and clearing up the stool material, withdrawal of the scope was made, cecum to rectum time over 6 minutes. No bleeding was noted from any of the visualized areas at the completion of examination. IMPRESSION: 1. Internal hemorrhoids. 2. Diverticulosis. The patient tolerated the procedure well. [facility] /[id number]
== END 2021-02-22 09:29 | disposition home or self-care (01) ==
LOC: DL.ENDO 05:52
PROVIDERS: ATTEND Internal Medicine Gastroenterology
DX: K57.31 Diverticulosis of large intestine without perforation or abscess with bleeding (principal); K64.8 Other hemorrhoids; K21.9 Gastro-esophageal reflux disease without esophagitis; E78.5 Hyperlipidemia, unspecified; C61 Malignant neoplasm of prostate; N20.1 Calculus of ureter
CPT/HCPCS: 45378; J2250; J3010; J7042

== ENCOUNTER 2023-02-08 11:24 | Observation (INO) | payer MEDICARE, BC ==
[2023-02-08 12:22] LABS: ANION GAP 12.3 mEq/L (7-13); CHLORIDE,CL 100 mmol/L (98-107); SODIUM,NA 135 mmol/L (136-145)
[2023-02-08] MEDS ORDERED: GI Cocktail Oral Solution 30 ML PO ONE (12:24)
[2023-02-08] MEDS ORDERED: Ondansetron 4 MG/2 ML SDV IVPUSH ONE (12:24)
[2023-02-08 12:28] LABS: ESTIMATED GFR 70 mL/min (>=60)
[2023-02-08] MEDS ORDERED: Sodium Chloride 0.9% 1,000 ML IV SCH (12:30)
[2023-02-08] MEDS ORDERED: Iopamidol 612 MG/ML 100 ML Bottle IVPUSH ONE (12:35)
[2023-02-08] MEDS ORDERED: Ciprofloxacin in D5W 400 MG in Premix Bag 1 BAG IV ONE ×2 (13:38)
[2023-02-08] MEDS ORDERED: Albuterol/Ipratropium 3.0-0.5 MG/3 ML Neb Soln NEB PRN (15:09)
[2023-02-08] MEDS ORDERED: Acetaminophen 325 MG Tab PO PRN (15:09)
[2023-02-08] MEDS ORDERED: Ondansetron 4 MG/2 ML SDV IVPUSH PRN (15:09)
[2023-02-08] MEDS ORDERED: Magnesium Sulfate/Water 2 GM in Premix Bag 1 BAG IV ONE (15:17)
[2023-02-08] MEDS ORDERED: Acetaminophen 500 MG Tab PO PRN (16:11)
[2023-02-08] MEDS: Acetaminophen/HYDROcodone 325-5 MG Tab PO PRN ×2 (16:31→20:34)
[2023-02-08] MEDS ORDERED: diphenhydrAMINE 25 MG Tab PO PRN (16:44)
[2023-02-08] MEDS: Dextrose 5%-0.9% NaCl 1,000 ML IV SCH (18:51)
[2023-02-08] MEDS: Famotidine 20 MG Tab PO SCH (20:34)
[2023-02-08] MEDS ORDERED: Metoprolol Tartrate 25 MG Tab PO SCH (21:00)
[2023-02-08] MEDS: METOPROLOL TARTRATE 25 MG PO SCH (21:12)
[2023-02-09] MEDS: Omeprazole 20 MG Cap.CR**PT OWN MED PO SCH (05:18)
[2023-02-09] MEDS: Acetaminophen/HYDROcodone 325-5 MG Tab PO PRN (05:20)
[2023-02-09] MEDS ORDERED: Omeprazole 20 MG Cap.CR PO SCH (06:00)
[2023-02-09 06:42] LABS: ANION GAP 5.3 mEq/L (7-13)
[2023-02-09] MEDS: Acetaminophen 500 MG Tab PO SCH (08:00)
[2023-02-09] MEDS: Famotidine 20 MG Tab PO SCH ×2 (08:00→20:19)
[2023-02-09] MEDS: METOPROLOL TARTRATE 25 MG PO SCH ×2 (09:02→20:19)
[2023-02-09] MEDS: Piperacillin/Tazobactam 3.375 GM in Sodium Chloride 0.9% 100 ML IV SCH ×3 (11:23→23:18)
[2023-02-09] MEDS: Dextrose 5%-0.9% NaCl 1,000 ML IV SCH (12:22)
[2023-02-09] MEDS: HYDROmorphone 0.5 MG/0.5 ML Syringe IVPUSH PRN (17:14)
[2023-02-09] MEDS: Cholecalciferol (Vitamin D3) 25 MCG Tab PO SCH (20:18)
[2023-02-09] MEDS: Saccharomyces Boulardii (Probiotic) 250 MG Cap PO SCH (20:18)
[2023-02-09] MEDS: Calcium Carbonate/Vitamin D3 1250 MG-5 MCG Tab PO SCH (20:19)
[2023-02-10] MEDS: Omeprazole 20 MG Cap.CR**PT OWN MED PO SCH (05:59)
[2023-02-10] MEDS: Piperacillin/Tazobactam 3.375 GM in Sodium Chloride 0.9% 100 ML IV SCH ×3 (05:59→17:08)
[2023-02-10] MEDS: HYDROmorphone 0.5 MG/0.5 ML Syringe IVPUSH PRN (06:04)
[2023-02-10 06:29] LABS: ANION GAP 8.6 mEq/L (7-13)
[2023-02-10] MEDS: Famotidine 20 MG Tab PO SCH (08:04)
[2023-02-10] MEDS: METOPROLOL TARTRATE 25 MG PO SCH (08:56)
[2023-02-10] MEDS: Cholecalciferol (Vitamin D3) 25 MCG Tab PO SCH (08:57)
[2023-02-10] MEDS: Saccharomyces Boulardii (Probiotic) 250 MG Cap PO SCH (08:58)
[2023-02-10] MEDS: Calcium Carbonate/Vitamin D3 1250 MG-5 MCG Tab PO SCH (08:58)
[2023-02-10] MEDS: Acetaminophen 500 MG Tab PO SCH (08:59)
[2023-02-10 18:59] VITALS: BP 135/51; PULSE 93
== END 2023-02-10 19:02 | disposition home or self-care (01) ==
LOC: DL.ED 11:24 → DL.MS 14:51
PROVIDERS: ADMIT Internal Medicine; ATTEND Internal Medicine
DX: K85.00 Idiopathic acute pancreatitis without necrosis or infection (principal); K76.9 Liver disease, unspecified; R74.8 Abnormal levels of other serum enzymes; E78.5 Hyperlipidemia, unspecified; D72.829 Elevated white blood cell count, unspecified; E87.1 Hypo-osmolality and hyponatremia; E83.42 Hypomagnesemia; R74.02 Elevation of levels of lactic acid dehydrogenase [LDH]; R91.8 Other nonspecific abnormal finding of lung field; R73.03 Prediabetes; K21.9 Gastro-esophageal reflux disease without esophagitis; M81.0 Age-related osteoporosis without current pathological fracture; G25.81 Restless legs syndrome; G43.909 Migraine, unspecified, not intractable, without status migrainosus; Z87.442 Personal history of urinary calculi; Z85.46 Personal history of malignant neoplasm of prostate; Z79.899 Other long term (current) drug therapy
CPT/HCPCS: 36415; 74177; 76705; 80053; 80061; 81001; 83605; 83615; 83690; 83735; 85025; 85651; 86140; 96361; 96365; 96366; 96367; 96375; 96376; 99284; 99285-25; A9270-GY; G0378; J0744; J1170; J2405; J2543; J3475; J7030; J7042; J7050; Q9967

== ENCOUNTER 2023-02-23 18:18 | Inpatient (IN) | payer MEDICARE, BC ==
[2023-02-23] MEDS ORDERED: Sodium Chloride 0.9% 1,000 ML IV ONE (18:32)
[2023-02-23] MEDS ORDERED: HYDROmorphone 0.5 MG/0.5 ML Syringe IVPUSH ONE (18:32)
[2023-02-23] MEDS ORDERED: Ondansetron 4 MG/2 ML SDV IVPUSH ONE (18:32)
[2023-02-23] MEDS: Sodium Chloride 0.9% 10 ML Syringe FLUSH PRN (18:55)
[2023-02-23 19:12] LABS: CHLORIDE,CL 100 mmol/L (98-107); SODIUM,NA 137 mmol/L (136-145)
[2023-02-23 19:28] LABS: ESTIMATED GFR 63 mL/min (>=60)
[2023-02-23] MEDS ORDERED: Docusate Sodium 100 MG Cap PO PRN (21:27)
[2023-02-23] MEDS ORDERED: oxyCODONE 5 MG Tab PO PRN (21:27)
[2023-02-23] MEDS ORDERED: HYDROmorphone 0.5 MG/0.5 ML Syringe IVPUSH PRN (21:27)
[2023-02-23] MEDS ORDERED: Temazepam 15 MG Cap PO PRN (21:27)
[2023-02-23] MEDS ORDERED: Magnesium Sulfate/Water 2 GM in Premix Bag 1 BAG IV ONE (21:33)
[2023-02-23] MEDS: Sodium Chloride 0.9% 1,000 ML IV SCH (22:19)
[2023-02-23] MEDS ORDERED: Ondansetron 4 MG/2 ML SDV IVPUSH PRN (22:30)
[2023-02-23] MEDS ORDERED: Ondansetron 4 MG Tab.DIS PO PRN (22:30)
[2023-02-23] MEDS ORDERED: Pantoprazole 40 MG Vial IVPUSH ONE (22:54)
[2023-02-23] MEDS: Metoprolol Tartrate 25 MG Tab PO SCH (23:23)
[2023-02-24] MEDS: Sodium Chloride 0.9% 1,000 ML IV SCH ×3 (06:00→22:15)
[2023-02-24 06:25] LABS: ANION GAP 9.6 mEq/L (7-13); CHLORIDE,CL 103 mmol/L (98-107); SODIUM,NA 138 mmol/L (136-145)
[2023-02-24 07:00] LABS: ESTIMATED GFR 76 mL/min (>=60)
[2023-02-24] MEDS: Enoxaparin 40 MG/0.4 ML Syringe SUBCUT SCH (08:25)
[2023-02-24] MEDS: Metoprolol Tartrate 25 MG Tab PO SCH ×2 (08:25→20:57)
[2023-02-24] MEDS: Sodium Chloride 0.9% 10 ML Syringe FLUSH PRN (08:26)
[2023-02-24] MEDS ORDERED: Metoprolol Tartrate 25 MG Tab PO SCH (09:00)
[2023-02-24] MEDS: Acetaminophen 325 MG Tab PO PRN (20:57)
[2023-02-24] MEDS: Pantoprazole 40 MG Vial IVPUSH SCH (20:58)
[2023-02-25] MEDS: Sodium Chloride 0.9% 1,000 ML IV SCH (06:20)
[2023-02-25 06:28] LABS: ANION GAP 8.3 mEq/L (7-13)
[2023-02-25] MEDS: Metoprolol Tartrate 25 MG Tab PO SCH ×2 (10:05→20:15)
[2023-02-25] MEDS: Enoxaparin 40 MG/0.4 ML Syringe SUBCUT SCH (10:06)
[2023-02-25] MEDS: Acetaminophen 325 MG Tab PO PRN (20:16)
[2023-02-25] MEDS: Pantoprazole 40 MG Vial IVPUSH SCH (20:18)
[2023-02-25] MEDS: Sodium Chloride 0.9% 10 ML Syringe FLUSH PRN (20:22)
[2023-02-26] MEDS: Metoprolol Tartrate 25 MG Tab PO SCH (08:41)
[2023-02-26] MEDS: Enoxaparin 40 MG/0.4 ML Syringe SUBCUT SCH (08:42)
[2023-02-26 10:15] VITALS: BP 102/50; PULSE 88
== END 2023-02-26 10:15 | disposition home or self-care (01) | DRG 439 ==
LOC: DL.ED 18:18 → DL.MS 20:14
PROVIDERS: ADMIT Internal Medicine; ATTEND Internal Medicine
DX: K85.90 Acute pancreatitis without necrosis or infection, unspecified (principal); J90 Pleural effusion, not elsewhere classified; J98.11 Atelectasis; R18.8 Other ascites; E78.5 Hyperlipidemia, unspecified; K21.9 Gastro-esophageal reflux disease without esophagitis; G25.81 Restless legs syndrome; M81.0 Age-related osteoporosis without current pathological fracture; K74.60 Unspecified cirrhosis of liver; R73.9 Hyperglycemia, unspecified; E83.42 Hypomagnesemia; E78.00 Pure hypercholesterolemia, unspecified; K76.9 Liver disease, unspecified; N40.0 Benign prostatic hyperplasia without lower urinary tract symptoms; G43.909 Migraine, unspecified, not intractable, without status migrainosus; Z85.46 Personal history of malignant neoplasm of prostate; Z87.442 Personal history of urinary calculi; Z92.21 Personal history of antineoplastic chemotherapy; Z92.3 Personal history of irradiation; Z90.89 Acquired absence of other organs; Z79.82 Long term (current) use of aspirin; Z79.899 Other long term (current) drug therapy; Z98.890 Other specified postprocedural states
CPT/HCPCS: 36415; 74181; 80048; 80053; 80061; 81003; 82150; 83605; 83615; 83690; 83735; 84145; 85025; 86140; 96361; 96374; 96375; 99284; 99285-25; A9270-GY; C9113; J1170; J1650; J2405; J3475; J3490; J7030

== ENCOUNTER 2024-03-10 05:55 | Day surgery (SDC) | payer MEDICARE, BC ==
[2024-03-10] MEDS ORDERED: fentaNYL 100 MCG/2 ML SDV ONE (06:15)
[2024-03-10] MEDS ORDERED: Midazolam 1 MG/ML 2 ML SDV ONE (06:15)
[2024-03-10] MEDS: Dextrose 5%-0.45% NaCl 1,000 ML IV SCH (06:27)
[2024-03-10] MEDS: fentaNYL 100 MCG/2 ML SDV IV ONE ×3 (07:04→07:12)
[2024-03-10] MEDS: Midazolam 1 MG/ML 2 ML SDV IV ONE ×6 (07:05→07:20)
[2024-03-10 09:28] VITALS: BP 106/51; PULSE 65
== END 2024-03-10 09:20 | disposition home or self-care (01) ==
LOC: DL.ENDO 05:55
PROVIDERS: ATTEND Internal Medicine Gastroenterology
DX: K62.7 Radiation proctitis (principal); K57.31 Diverticulosis of large intestine without perforation or abscess with bleeding; K21.9 Gastro-esophageal reflux disease without esophagitis
CPT/HCPCS: 45378; J2250; J3010; J7042

== ENCOUNTER 2025-09-01 23:17 | Inpatient (IN) | payer MEDICARE, BC ==
[2025-09-01] MEDS: Iopamidol 612 MG/ML 100 ML Bottle IVPUSH ONE (23:49)
[2025-09-01 23:55] LABS: BASOPHILS PERCENT AUTO 0.1 % (0.0-1.0); EOSINOPHILS PERCENT AUTO 2.7 % (1.0-3.0); LYMPHOCYTES PERCENT AUTO 15.8 % (20.5-50.1); MONOCYTES PERCENT AUTO 3.5 % (2-8); NEUTROPHILS PERCENT AUTO 77.9 % (42.2-75.2); PLATELET COUNT,PLT 220 10^3/uL (150-450); RED BLOOD CELL COUNT 4.11 10^6/uL (4.6-6.2); WHITE BLOOD CELL COUNT,WBC 15.5 10^3/uL (5.0-10.0)
[2025-09-01] MEDS: Ondansetron 4 MG/2 ML SDV IVPUSH ONE (23:59)
[2025-09-02 00:15] LABS: LACTIC ACID 1.2 mmol/L (0.4-2.0)
[2025-09-02 00:19] LABS: A/G RATIO 1.0; ALANINE AMINOTRANSFERASE,ALT 45 U/L (16-63); ASPARTATE AMNIOTRANSFERASE,AST 41 U/L (15-37); BILIRUBIN TOTAL 0.4 mg/dL (0.2-1.0); BLOOD UREA NITROGEN,BUN 29 mg/dL (7-18); CARBON DIOXIDE,CO2 31 mmol/L (21-32); CHLORIDE,CL 99 mmol/L (98-107); CREATININE 1.13 mg/dL (0.70-1.30); EST CRCL DRUG DOSING (CG) 48.18 mL/min; GLUCOSE RANDOM 114 mg/dL (70-99); POTASSIUM,K 4.0 mmol/L (3.5-5.1); PROTEIN TOTAL,TP 7.8 g/dL (6.4-8.2); SODIUM,NA 137 mmol/L (136-145)
[2025-09-02 00:20] LABS: ESTIMATED GFR 65 mL/min (>=60)
[2025-09-02 01:21] LABS: APPEARANCE,URINE CLEAR (CLEAR); GLUCOSE,URINE NEGATIVE (NEGATIVE); OCCULT BLOOD,URINE TRACE-INTACT (NEGATIVE)
[2025-09-02 01:30] LABS: EPITHELIAL CELLS,URINE RARE /HPF (NOT SEEN)
[2025-09-02] MEDS ORDERED: Ondansetron 4 MG/2 ML SDV IVPUSH PRN (03:35)
[2025-09-02] MEDS: Heparin Sodium 5,000 Units/ML Vial SUBCUT SCH (05:00)
[2025-09-02 06:39] LABS: BASOPHILS PERCENT AUTO 0.1 % (0.0-1.0); EOSINOPHILS PERCENT AUTO 0.4 % (1.0-3.0); LYMPHOCYTES PERCENT AUTO 8.3 % (20.5-50.1); MONOCYTES PERCENT AUTO 4.7 % (2-8); NEUTROPHILS PERCENT AUTO 86.5 % (42.2-75.2); PLATELET COUNT,PLT 213 10^3/uL (150-450); RED BLOOD CELL COUNT 3.77 10^6/uL (4.6-6.2); WHITE BLOOD CELL COUNT,WBC 16.3 10^3/uL (5.0-10.0)
[2025-09-02 06:57] LABS: CHOLESTEROL HDL 62 mg/dL (40-59); CHOLESTEROL LDL CALCULATED 126 mg/dL (0-100); CHOLESTEROL TOTAL 200 mg/dL (0-199); GAMMA GLUTAMYL TRANSFERASE,GGT 156 U/L (15-85)
[2025-09-02 07:07] LABS: A/G RATIO 0.9; ALANINE AMINOTRANSFERASE,ALT 41.0 U/L (16-63); ASPARTATE AMNIOTRANSFERASE,AST 42.0 U/L (15-37); BILIRUBIN DIRECT 0.2 mg/dL (0.0-0.2); BILIRUBIN INDIRECT 0.3; BILIRUBIN TOTAL 0.5 mg/dL (0.2-1.0); BLOOD UREA NITROGEN,BUN 26.0 mg/dL (7-18); CARBON DIOXIDE,CO2 28.0 mmol/L (21-32); CHLORIDE,CL 100.0 mmol/L (98-107); CREATININE 1.03 mg/dL (0.70-1.30); EST CRCL DRUG DOSING (CG) 51.62 mL/min; ESTIMATED GFR 73.0 mL/min (>=60); GLUCOSE RANDOM 137.0 mg/dL (70-99); PHOSPHORUS 4.0 mg/dL (2.6-4.7); POTASSIUM,K 4.4 mmol/L (3.5-5.1); PROTEIN TOTAL,TP 7.2 g/dL (6.4-8.2); SODIUM,NA 137.0 mmol/L (136-145)
[2025-09-02] MEDS ORDERED: Acetaminophen/HYDROcodone 325-5 MG Tab PO PRN (08:06)
[2025-09-02] MEDS: FLU (Fluad Triv) 25-26 (65UP)/MF59C/PF 45 MCG/0.5 ML Syringe IM ONE (11:21)
[2025-09-03 06:30] LABS: BASOPHILS PERCENT AUTO 0.1 % (0.0-1.0); EOSINOPHILS PERCENT AUTO 2.2 % (1.0-3.0); LYMPHOCYTES PERCENT AUTO 16.2 % (20.5-50.1); MONOCYTES PERCENT AUTO 8.1 % (2-8); NEUTROPHILS PERCENT AUTO 73.4 % (42.2-75.2); PLATELET COUNT,PLT 164 10^3/uL (150-450); RED BLOOD CELL COUNT 3.49 10^6/uL (4.6-6.2); WHITE BLOOD CELL COUNT,WBC 8.8 10^3/uL (5.0-10.0)
[2025-09-03 06:57] LABS: ALANINE AMINOTRANSFERASE,ALT 31 U/L (16-63); ASPARTATE AMNIOTRANSFERASE,AST 25 U/L (15-37); BILIRUBIN TOTAL 0.7 mg/dL (0.2-1.0); BLOOD UREA NITROGEN,BUN 14 mg/dL (7-18); CARBON DIOXIDE,CO2 28 mmol/L (21-32); CHLORIDE,CL 101 mmol/L (98-107); CREATININE 0.80 mg/dL (0.70-1.30); EST CRCL DRUG DOSING (CG) 66.73 mL/min; GLUCOSE RANDOM 111 mg/dL (70-99); POTASSIUM,K 3.9 mmol/L (3.5-5.1); PROTEIN TOTAL,TP 6.2 g/dL (6.4-8.2); SODIUM,NA 137 mmol/L (136-145)
[2025-09-03 07:01] LABS: A/G RATIO 0.82; ESTIMATED GFR 88 mL/min (>=60)
[2025-09-03] MEDS: Magnesium Sulfate 2 GM/50 mL 2 GM in Premix Bag 1 BAG IV ONE (09:43)
[2025-09-04 06:36] LABS: BASOPHILS PERCENT AUTO 0.3 % (0.0-1.0); EOSINOPHILS PERCENT AUTO 3.8 % (1.0-3.0); LYMPHOCYTES PERCENT AUTO 23.5 % (20.5-50.1); MONOCYTES PERCENT AUTO 10.4 % (2-8); NEUTROPHILS PERCENT AUTO 62.0 % (42.2-75.2); PLATELET COUNT,PLT 160 10^3/uL (150-450); RED BLOOD CELL COUNT 3.56 10^6/uL (4.6-6.2); WHITE BLOOD CELL COUNT,WBC 7.6 10^3/uL (5.0-10.0)
[2025-09-04 07:05] LABS: ALANINE AMINOTRANSFERASE,ALT 25.0 U/L (16-63); ASPARTATE AMNIOTRANSFERASE,AST 22.0 U/L (15-37); BILIRUBIN TOTAL 0.6 mg/dL (0.2-1.0); BLOOD UREA NITROGEN,BUN 9.0 mg/dL (7-18); CARBON DIOXIDE,CO2 27.0 mmol/L (21-32); CHLORIDE,CL 103.0 mmol/L (98-107); CREATININE 0.83 mg/dL (0.70-1.30); EST CRCL DRUG DOSING (CG) 64.14 mL/min; GLUCOSE RANDOM 104.0 mg/dL (70-99); POTASSIUM,K 4.3 mmol/L (3.5-5.1); PROTEIN TOTAL,TP 6.3 g/dL (6.4-8.2); SODIUM,NA 137.0 mmol/L (136-145)
[2025-09-04 07:09] LABS: A/G RATIO 0.75; ESTIMATED GFR 87.0 mL/min (>=60)
[2025-09-05 05:41] LABS: BASOPHILS PERCENT AUTO 0.4 % (0.0-1.0); EOSINOPHILS PERCENT AUTO 5.0 % (1.0-3.0); LYMPHOCYTES PERCENT AUTO 28.5 % (20.5-50.1); MONOCYTES PERCENT AUTO 12.0 % (2-8); NEUTROPHILS PERCENT AUTO 54.1 % (42.2-75.2); PLATELET COUNT,PLT 177 10^3/uL (150-450); RED BLOOD CELL COUNT 3.54 10^6/uL (4.6-6.2); WHITE BLOOD CELL COUNT,WBC 7.3 10^3/uL (5.0-10.0)
[2025-09-05 06:00] LABS: ALANINE AMINOTRANSFERASE,ALT 26.0 U/L (16-63); ASPARTATE AMNIOTRANSFERASE,AST 21.0 U/L (15-37); BILIRUBIN TOTAL 0.6 mg/dL (0.2-1.0); BLOOD UREA NITROGEN,BUN 11.0 mg/dL (7-18); CARBON DIOXIDE,CO2 28.0 mmol/L (21-32); CHLORIDE,CL 100.0 mmol/L (98-107); CREATININE 0.77 mg/dL (0.70-1.30); EST CRCL DRUG DOSING (CG) 69.05 mL/min; GLUCOSE RANDOM 100.0 mg/dL (70-99); POTASSIUM,K 4.3 mmol/L (3.5-5.1); PROTEIN TOTAL,TP 6.5 g/dL (6.4-8.2); SODIUM,NA 134.0 mmol/L (136-145)
[2025-09-05 06:05] LABS: A/G RATIO 0.76; ESTIMATED GFR 89.0 mL/min (>=60)
[2025-09-05 09:55] VITALS: BP 124/56; PULSE 67
[2025-09-05] MEDS: FLU (Fluad Triv) 25-26 (65UP)/MF59C/PF 45 MCG/0.5 ML Syringe IM ONE (11:06)
== END 2025-09-05 11:30 | disposition home or self-care (01) | DRG 391 ==
LOC: DL.ED 23:17 → DL.MS 09-02 02:20
PROVIDERS: ADMIT Internal Medicine; ATTEND Internal Medicine
DX: K29.80 Duodenitis without bleeding (principal); K85.90 Acute pancreatitis without necrosis or infection, unspecified; N17.9 Acute kidney failure, unspecified; H26.9 Unspecified cataract; H54.7 Unspecified visual loss; E78.00 Pure hypercholesterolemia, unspecified; I10 Essential (primary) hypertension; K21.9 Gastro-esophageal reflux disease without esophagitis; N40.0 Benign prostatic hyperplasia without lower urinary tract symptoms; E83.52 Hypercalcemia; D72.829 Elevated white blood cell count, unspecified; G25.81 Restless legs syndrome; J98.4 Other disorders of lung; K74.60 Unspecified cirrhosis of liver; N42.9 Disorder of prostate, unspecified; M19.90 Unspecified osteoarthritis, unspecified site; M81.0 Age-related osteoporosis without current pathological fracture; E86.0 Dehydration; G43.909 Migraine, unspecified, not intractable, without status migrainosus; M85.80 Other specified disorders of bone density and structure, unspecified site; D64.9 Anemia, unspecified; E53.8 Deficiency of other specified B group vitamins; Z85.828 Personal history of other malignant neoplasm of skin; Z85.46 Personal history of malignant neoplasm of prostate; Z79.899 Other long term (current) drug therapy; Z86.16 Personal history of COVID-19; Z90.49 Acquired absence of other specified parts of digestive tract; Z98.890 Other specified postprocedural states
CPT/HCPCS: 36415; 74177; 80048; 80053; 80061; 80076; 81001; 82977; 83605; 83690; 83735; 84100; 84484; 85025; 86140; 90653; 96372; 96374; 96375; 99285; 99285-25; A9270-GY; J1171; J1644; J2270; J2405; J2470; J3475; J7030; Q9967; S5010

== ENCOUNTER 2025-10-30 21:17 | Inpatient (IN) | payer MEDICARE, BC ==
[2025-10-30] MEDS ORDERED: Sodium Chloride 0.9% 10 ML Syringe FLUSH PRN (21:36)
[2025-10-30 21:43] LABS: BASOPHILS PERCENT AUTO 0.3 % (0.0-1.0); EOSINOPHILS PERCENT AUTO 2.1 % (1.0-3.0); LYMPHOCYTES PERCENT AUTO 14.8 % (20.5-50.1); MONOCYTES PERCENT AUTO 4.4 % (2-8); NEUTROPHILS PERCENT AUTO 78.4 % (42.2-75.2); PLATELET COUNT,PLT 206 10^3/uL (150-450); RED BLOOD CELL COUNT 4.18 10^6/uL (4.6-6.2); WHITE BLOOD CELL COUNT,WBC 10.3 10^3/uL (5.0-10.0)
[2025-10-30] MEDS: Lactated Ringers 1,000 ML IV SCH (21:45)
[2025-10-30 22:03] LABS: LACTIC ACID 0.9 mmol/L (0.4-2.0)
[2025-10-30 22:06] LABS: A/G RATIO 0.9; ALANINE AMINOTRANSFERASE,ALT 49 U/L (16-63); ASPARTATE AMNIOTRANSFERASE,AST 52 U/L (15-37); BILIRUBIN TOTAL 0.4 mg/dL (0.2-1.0); BLOOD UREA NITROGEN,BUN 28 mg/dL (7-18); CARBON DIOXIDE,CO2 32 mmol/L (21-32); CHLORIDE,CL 96 mmol/L (98-107); CREATININE 1.19 mg/dL (0.70-1.30); GLUCOSE RANDOM 104 mg/dL (70-99); POTASSIUM,K 4.1 mmol/L (3.5-5.1); PROTEIN TOTAL,TP 7.9 g/dL (6.4-8.2); SODIUM,NA 134 mmol/L (136-145)
[2025-10-30] MEDS: fentaNYL 100 MCG/2 ML SDV IVPUSH ONE (22:07)
[2025-10-30 22:09] LABS: ESTIMATED GFR 61 mL/min (>=60)
[2025-10-30] MEDS: Ondansetron 4 MG/2 ML SDV IVPUSH ONE (22:13)
[2025-10-30] MEDS: Ondansetron 4 MG/2 ML SDV ONE (22:13)
[2025-10-30] MEDS: Iopamidol 612 MG/ML 100 ML Bottle IVPUSH ONE (22:28)
[2025-10-31] MEDS ORDERED: Ondansetron 4 MG/2 ML SDV IVPUSH PRN (00:30)
[2025-10-31 00:47] LABS: CHOLESTEROL HDL 70 mg/dL (40-59); CHOLESTEROL LDL CALCULATED 126 mg/dL (0-100); CHOLESTEROL TOTAL 214 mg/dL (0-199)
[2025-10-31] MEDS: fentaNYL 100 MCG/2 ML SDV IVPUSH PRN (00:51)
[2025-10-31] MEDS: Heparin Sodium 5,000 Units/ML Vial SUBCUT SCH (00:53)
[2025-10-31] MEDS: Lactulose Soln 10 GM/15 ML 30 ML UD Cup PO SCH (08:23)
[2025-10-31] MEDS: Sennosides/Docusate Sodium 50-8.6 MG Tab PO SCH (08:23)
[2025-10-31] MEDS: Metoprolol Tartrate 5 MG/5 ML SDV IVPUSH SCH (10:33)
[2025-11-01 06:06] LABS: BASOPHILS PERCENT AUTO 0.4 % (0.0-1.0); EOSINOPHILS PERCENT AUTO 2.3 % (1.0-3.0); LYMPHOCYTES PERCENT AUTO 17.3 % (20.5-50.1); MONOCYTES PERCENT AUTO 9.5 % (2-8); NEUTROPHILS PERCENT AUTO 70.5 % (42.2-75.2); PLATELET COUNT,PLT 151 10^3/uL (150-450); RED BLOOD CELL COUNT 3.40 10^6/uL (4.6-6.2); WHITE BLOOD CELL COUNT,WBC 5.7 10^3/uL (5.0-10.0)
[2025-11-01 06:24] LABS: ALANINE AMINOTRANSFERASE,ALT 37.0 U/L (16-63); ASPARTATE AMNIOTRANSFERASE,AST 29.0 U/L (15-37); BILIRUBIN DIRECT 0.2 mg/dL (0.0-0.2); BILIRUBIN INDIRECT 0.5; BILIRUBIN TOTAL 0.7 mg/dL (0.2-1.0); BLOOD UREA NITROGEN,BUN 17.0 mg/dL (7-18); CARBON DIOXIDE,CO2 26.0 mmol/L (21-32); CHLORIDE,CL 104.0 mmol/L (98-107); CREATININE 0.97 mg/dL (0.70-1.30); EST CRCL DRUG DOSING (CG) 54.36 mL/min; GLUCOSE RANDOM 89.0 mg/dL (70-99); POTASSIUM,K 4.3 mmol/L (3.5-5.1); PROTEIN TOTAL,TP 6.1 g/dL (6.4-8.2); SODIUM,NA 138.0 mmol/L (136-145)
[2025-11-01 06:25] LABS: A/G RATIO 0.79; ESTIMATED GFR 78.0 mL/min (>=60)
[2025-11-01 10:00] LABS: BASOPHILS PERCENT AUTO 0.3 % (0.0-1.0); EOSINOPHILS PERCENT AUTO 2.0 % (1.0-3.0); LYMPHOCYTES PERCENT AUTO 19.5 % (20.5-50.1); MONOCYTES PERCENT AUTO 9.5 % (2-8); NEUTROPHILS PERCENT AUTO 68.7 % (42.2-75.2); PLATELET COUNT,PLT 158 10^3/uL (150-450); RED BLOOD CELL COUNT 3.62 10^6/uL (4.6-6.2); WHITE BLOOD CELL COUNT,WBC 5.9 10^3/uL (5.0-10.0)
[2025-11-01 14:36] VITALS: BP 132/68; PULSE 68
== END 2025-11-01 14:30 | disposition home or self-care (01) | DRG 439 ==
LOC: DL.ED 21:17 → DL.MS 23:35
PROVIDERS: ADMIT Internal Medicine; ATTEND Internal Medicine
DX: K85.00 Idiopathic acute pancreatitis without necrosis or infection (principal); C79.51 Secondary malignant neoplasm of bone; I77.4 Celiac artery compression syndrome; K62.5 Hemorrhage of anus and rectum; Z66 Do not resuscitate; I10 Essential (primary) hypertension; C61 Malignant neoplasm of prostate; K74.60 Unspecified cirrhosis of liver; E83.52 Hypercalcemia; I70.1 Atherosclerosis of renal artery; H54.7 Unspecified visual loss; E78.00 Pure hypercholesterolemia, unspecified; K21.9 Gastro-esophageal reflux disease without esophagitis; M19.90 Unspecified osteoarthritis, unspecified site; M81.0 Age-related osteoporosis without current pathological fracture; G25.81 Restless legs syndrome; D64.9 Anemia, unspecified; Z96.698 Presence of other orthopedic joint implants; Z85.828 Personal history of other malignant neoplasm of skin; Z98.890 Other specified postprocedural states; Z79.1 Long term (current) use of non-steroidal anti-inflammatories (NSAID); Z79.899 Other long term (current) drug therapy
CPT/HCPCS: 36415; 74177; 80048; 80053; 80061; 80076; 83605; 83690; 83735; 85025; 96374; 96375; 99223; 99239; 99284; 99285-25; A9270-GY; J1644; J2405; J3010; J7030; J7120; Q9967